=== PATIENT | female | born 1940 | race African-American/Black ===

== ENCOUNTER 2023-03-09 09:29 | Day surgery (SDC) | payer OTHER ==
[2023-03-07 14:13] VITALS: BMI 29.9
[2023-03-09 12:20] VITALS: TEMP 98
[2023-03-09 12:23] VITALS: RESP 19
[2023-03-09 13:14] VITALS: BP 154/72; PULSE 78
== END 2023-03-09 13:40 | disposition home or self-care (01) ==
LOC: FASU-ENDO 09:29
PROVIDERS: ATTEND Internal Medicine Gastroenterology
PROC: 0DJD8ZZ Inspection of Lower Intestinal Tract, Via Natural or Artificial Opening Endoscopic (ICD-10-PCS; principal; 2023-03-09 11:19)
DX: Z12.11 Encounter for screening for malignant neoplasm of colon (principal); Z86.010 Personal history of colon polyps; K64.1 Second degree hemorrhoids